=== PATIENT | male | born 1950 | race African-American/Black ===

== ENCOUNTER 2017-11-06 12:23 | Emergency (ER) | payer MEDICARE, OTHER ==
[~2017-11-06] VITALS: Ht 175.3 cm; Wt 110.0 kg
[2017-11-06] MEDS ORDERED: ACETAMINOPHEN WITH CODEINE 300/30MG TABLET PO ONE (13:45)
[2017-11-06 20:01] VITALS: BP 160/88
== END 2017-11-06 20:04 | disposition home or self-care (01) ==
LOC: ER 12:37
DX: M25.511 Pain in right shoulder (principal); M54.2 Cervicalgia; M54.9 Dorsalgia, unspecified; F17.200 Nicotine dependence, unspecified, uncomplicated; E11.9 Type 2 diabetes mellitus without complications; Z86.73 Personal history of transient ischemic attack (TIA), and cerebral infarction without residual deficits; Z95.1 Presence of aortocoronary bypass graft
CPT/HCPCS: 72125; 73030; 99284